=== PATIENT | male | born 1930 | race Caucasian/White ===

== ENCOUNTER → 2018-03-12 | Outpatient (CLI) | payer MEDICARE ==
[~2018-03-12] MED LIST: AMIO200T PO; AMIO200T42 PO; CARV12.543 PO; CLONIDINE PATCH; HYDR25TA6 PO; LOSA100T6 PO; LOSA25TA2 PO; OMEP-110 PO; RIVA20TA PO
== END | disposition home or self-care (01) ==
LOC: CVU 13:03
PROVIDERS: ATTEND Internal Medicine Cardiovascular Disease
DX: I48.91 Unspecified atrial fibrillation (principal); I08.0 Rheumatic disorders of both mitral and aortic valves; I10 Essential (primary) hypertension
CPT/HCPCS: 93306

== ENCOUNTER 2018-03-22 15:14 | Inpatient (IN) | payer MEDICARE, OTHER ==
[~2018-03-22] VITALS: Ht 185.4 cm; Wt 111.9 kg
[2018-03-22] MEDS ORDERED: SODIUM CHLORIDE FLUSH 10ML SYR IVF ONE (15:30)
[2018-03-22 15:38] LABS: BASOPHILS # (AUTO) 0.07 x10^3/uL (0-0.1); BASOPHILS % (AUTO) 1 % (0-1); EOSINOPHILS # (AUTO) 0.08 x10^3/uL (0-0.4); EOSINOPHILS % (AUTO) 1 % (1-7); LYMPHOCYTES # (AUTO) 1.87 x10^3/uL (1-3.4); LYMPHOCYTES % (AUTO) 23 % (22-44); MD NO; MEAN CORPUSCULAR HEMOGLOBIN 28.2 pg (27.5-34.5); MEAN CORPUSCULAR HGB CONC 32.9 g/dL (33.2-36.2); MEAN CORPUSCULAR VOLUME 85.6 fL (81-97); MEAN PLATELET VOLUME 9.4 fL (7.4-10.4); MONOCYTES # (AUTO) 1.12 x10^3/uL (0.2-0.8); MONOCYTES % (AUTO) 14 % (2-9); NEUTROPHILS # (AUTO) 5.13 x10^3/uL (1.8-6.8); NEUTROPHILS % (AUTO) 62 % (42-75); PLATELET COUNT 172 x10^3/uL (130-400); RED BLOOD COUNT 4.15 x10^6/uL (4.38-5.82); RED CELL DISTRIBUTION WIDTH 13.7 % (9.4-14.8)
[2018-03-22 15:47] LABS: ANION GAP 9 mmol/L (5-15); CALCIUM 8.9 mg/dL (8.5-10.1); CHLORIDE 105 mmol/L (98-107); CREATININE 1.68 mg/dL (0.7-1.3)
[2018-03-22] MEDS ORDERED: ONDANSETRON 2MG/ML, 2ML ONE (15:53)
[2018-03-22] MEDS ORDERED: MORPHINE SULFATE 4 MG/ML, 1ML ONE ×2 (15:54→21:00)
[2018-03-22 15:57] LABS: INTERNATIONAL NORMALIZED RATIO 1.13 (0.93-1.1); PROTHROMBIN TIME 11.6 Seconds (9.6-11.5)
[2018-03-22] MEDS ORDERED: ONDANSETRON 2MG/ML, 2ML IVPush ONE (16:00)
[2018-03-22] MEDS: MORPHINE SULFATE 4 MG/ML, 1ML IVPush PRN ×2 (16:05→17:38)
[2018-03-22] MEDS ORDERED: LIDOCAINE-MPF 2% ,5ML ONE (16:12)
[2018-03-22] MEDS ORDERED: LEVE250T28 PO ×2 (17:15→17:16)
[2018-03-22] MEDS ORDERED: NOVOSEVEN RT (FACTOR VIIA) RECOMB 1,000 MCG IVPush ONE (17:30)
[2018-03-22] MEDS ORDERED: MAGN250T8 PO (17:31)
[2018-03-22] MEDS ORDERED: TEMA30CA6 PO (17:31)
[2018-03-22] MEDS ORDERED: OMEP20TA62 PO (17:33)
[2018-03-22] MEDS ORDERED: LOSA100T2 PO (17:33)
[2018-03-22] MEDS ORDERED: FURO-93 PO (17:33)
[2018-03-22] MEDS ORDERED: ELIQUIS (17:34)
[2018-03-22] MEDS ORDERED: THYROID MED (17:34)
[2018-03-22] MEDS ORDERED: SODIUM CHLORIDE FLUSH 10ML SYR IVF PRN (18:00)
[2018-03-22] MEDS ORDERED: LEVETIRACETAM 250 MG in SODIUM CHLORIDE 0.9% 100 ML IV SCH (19:30)
[2018-03-22] MEDS: D5%-0.45NACL+KCL 20MEQ 1,000 ML IV SCH (20:11)
[2018-03-22 20:15] VITALS: BP 131/84
[2018-03-22] MEDS: METOPROLOL TARTRATE 25 MG TABLET PO SCH (20:30)
[2018-03-22] MEDS: METHIMAZOLE 5 MG TAB PO SCH (20:30)
[2018-03-22] MEDS ORDERED: LABETALOL 5MG/ML, 20ML ONE (21:19)
[2018-03-22] MEDS ORDERED: MORPHINE SULFATE 4 MG/ML, 1ML IVPush PRN (21:30)
[2018-03-22] MEDS ORDERED: LABETALOL 5MG/ML, 20ML IVPush PRN (21:30)
[2018-03-22] MEDS: LORazepam 2 MG/ML, 1ML IVPush PRN (22:21)
[2018-03-23] MEDS: METOPROLOL TARTRATE 25 MG TABLET PO SCH ×4 (02:30→20:19)
[2018-03-23] MEDS ORDERED: LABETALOL 5MG/ML, 20ML IVPush PRN (03:30)
[2018-03-23 04:00] VITALS: BP 98/53
[2018-03-23 04:28] LABS: MEAN CORPUSCULAR HEMOGLOBIN 27.7 pg (27.5-34.5); MEAN CORPUSCULAR HGB CONC 32.4 g/dL (33.2-36.2); MEAN CORPUSCULAR VOLUME 85.3 fL (81-97); MEAN PLATELET VOLUME 9.7 fL (7.4-10.4); PLATELET COUNT 159 x10^3/uL (130-400); RED BLOOD COUNT 3.93 x10^6/uL (4.38-5.82); RED CELL DISTRIBUTION WIDTH 13.7 % (9.4-14.8)
[2018-03-23] MEDS: METHIMAZOLE 5 MG TAB PO SCH ×3 (04:30→20:19)
[2018-03-23 04:40] LABS: CHLORIDE 107 mmol/L (98-107)
[2018-03-23 04:47] LABS: ALANINE AMINOTRANSFERASE 27 U/L (12-78); ALBUMIN 2.8 g/dL (3.4-5.0); ALKALINE PHOSPHATASE 128 U/L (45-117); ANION GAP 7 mmol/L (5-15); BILIRUBIN,TOTAL 0.8 mg/dL (0.2-1.0); CALCIUM 8.7 mg/dL (8.5-10.1); CREATININE 1.78 mg/dL (0.7-1.3)
[2018-03-23 04:50] LABS: BASOPHILS # (AUTO) 0.13 x10^3/uL (0-0.1); BASOPHILS % (AUTO) 1 % (0-1); EOSINOPHILS # (AUTO) 0.01 x10^3/uL (0-0.4); EOSINOPHILS % (AUTO) 0 % (1-7); LYMPHOCYTES # (AUTO) 1.48 x10^3/uL (1-3.4); LYMPHOCYTES % (AUTO) 13 % (22-44); MD SCAN; MONOCYTES # (AUTO) 1.87 x10^3/uL (0.2-0.8); MONOCYTES % (AUTO) 17 % (2-9); NEUTROPHILS # (AUTO) 7.63 x10^3/uL (1.8-6.8); NEUTROPHILS % (AUTO) 69 % (42-75)
[2018-03-23] MEDS: D5%-0.45NACL+KCL 20MEQ 1,000 ML IV SCH ×2 (05:00→17:28)
[2018-03-23] MEDS: LABETALOL 5MG/ML, 20ML IVPush PRN ×4 (07:11→23:02)
[2018-03-23] MEDS: MORPHINE SULFATE 4 MG/ML, 1ML IVPush PRN ×3 (07:12→22:22)
[2018-03-23] MEDS: LORazepam 2 MG/ML, 1ML IVPush PRN ×3 (10:09→21:00)
[2018-03-23] MEDS: LEVETIRACETAM 250 MG in SODIUM CHLORIDE 0.9% 100 ML IV SCH ×2 (12:30→21:00)
[2018-03-24] MEDS: MORPHINE SULFATE 4 MG/ML, 1ML IVPush PRN ×6 (00:21→22:54)
[2018-03-24] MEDS: LABETALOL 5MG/ML, 20ML IVPush PRN ×2 (00:40→20:16)
[2018-03-24] MEDS: METOPROLOL TARTRATE 25 MG TABLET PO SCH ×4 (02:40→19:56)
[2018-03-24] MEDS: D5%-0.45NACL+KCL 20MEQ 1,000 ML IV SCH ×2 (02:47→15:57)
[2018-03-24 04:30] VITALS: BP 123/60
[2018-03-24] MEDS: METHIMAZOLE 5 MG TAB PO SCH ×3 (04:31→19:56)
[2018-03-24] MEDS ORDERED: FENTANYL PF 100 MCG/2ML ONE (06:40)
[2018-03-24] MEDS ORDERED: FENTANYL PF 250 MCG/5ML ONE (06:40)
[2018-03-24] MEDS ORDERED: CEFAZOLIN 1,000 MG ONE (06:53)
[2018-03-24] MEDS ORDERED: PROPOFOL 10 MG/ML, 20ML ONE (06:53)
[2018-03-24] MEDS ORDERED: SUCCINYLCHOLINE 20 MG/ML, 10ML ONE (06:53)
[2018-03-24] MEDS ORDERED: PHENYLEPHRINE 10 MG/ML ONE (06:53)
[2018-03-24] MEDS ORDERED: ONDANSETRON 2MG/ML, 2ML ONE (06:53)
[2018-03-24] MEDS ORDERED: NEOSPORIN OINT, 15GM TP PRN (09:30)
[2018-03-24] MEDS: LEVETIRACETAM 250 MG in SODIUM CHLORIDE 0.9% 100 ML IV SCH ×2 (11:24→20:18)
[2018-03-24] MEDS: CEFAZOLIN PMX 2GM/50ML 50 ML IVPB SCH ×2 (15:36→23:40)
[2018-03-24] MEDS: LORazepam 2 MG/ML, 1ML IVPush PRN (15:57)
[2018-03-25] MEDS: LORazepam 2 MG/ML, 1ML IVPush PRN ×2 (01:12→20:57)
[2018-03-25] MEDS: D5%-0.45NACL+KCL 20MEQ 1,000 ML IV SCH ×3 (01:13→20:57)
[2018-03-25] MEDS: METOPROLOL TARTRATE 25 MG TABLET PO SCH ×4 (02:30→20:33)
[2018-03-25] MEDS: METHIMAZOLE 5 MG TAB PO SCH ×3 (03:05→20:33)
[2018-03-25 04:00] VITALS: BP 135/67
[2018-03-25] MEDS: LABETALOL 5MG/ML, 20ML IVPush PRN (07:48)
[2018-03-25] MEDS: LEVETIRACETAM 250 MG in SODIUM CHLORIDE 0.9% 100 ML IV SCH ×2 (11:38→20:57)
[2018-03-25] MEDS: MORPHINE SULFATE 4 MG/ML, 1ML IVPush PRN ×2 (14:55→22:07)
[2018-03-26] MEDS: METOPROLOL TARTRATE 25 MG TABLET PO SCH ×4 (03:26→20:13)
[2018-03-26] MEDS: METHIMAZOLE 5 MG TAB PO SCH ×3 (03:26→20:13)
[2018-03-26 04:00] VITALS: BP 126/81
[2018-03-26] MEDS: MORPHINE SULFATE 4 MG/ML, 1ML IVPush PRN ×3 (04:40→22:28)
[2018-03-26] MEDS: D5%-0.45NACL+KCL 20MEQ 1,000 ML IV SCH (05:43)
[2018-03-26] MEDS ORDERED: FUROSEMIDE 20 MG/2 ML IV ONE (07:30)
[2018-03-26] MEDS ORDERED: KETOROLAC 30 MG/1 ML IVPush PRN (08:00)
[2018-03-26 08:10] LABS: MEAN CORPUSCULAR HEMOGLOBIN 27.4 pg (27.5-34.5); MEAN CORPUSCULAR HGB CONC 31.9 g/dL (33.2-36.2); MEAN CORPUSCULAR VOLUME 85.8 fL (81-97); PLATELET COUNT 209 x10^3/uL (130-400); RED BLOOD COUNT 3.85 x10^6/uL (4.38-5.82)
[2018-03-26 08:19] LABS: ALBUMIN 2.5 g/dL (3.4-5.0); ANION GAP 8 mmol/L (5-15); CALCIUM 8.4 mg/dL (8.5-10.1); CHLORIDE 106 mmol/L (98-107)
[2018-03-26 08:26] LABS: BASOPHILS # (AUTO) 0.03 x10^3/uL (0-0.1); BASOPHILS % (AUTO) 0 % (0-1); EOSINOPHILS # (AUTO) 0.09 x10^3/uL (0-0.4); EOSINOPHILS % (AUTO) 1 % (1-7); LYMPHOCYTES % (AUTO) 15 % (22-44); MD SCAN; MONOCYTES # (AUTO) 1.72 x10^3/uL (0.2-0.8); MONOCYTES % (AUTO) 15 % (2-9); NEUTROPHILS # (AUTO) 8.12 x10^3/uL (1.8-6.8); NEUTROPHILS % (AUTO) 69 % (42-75)
[2018-03-26 08:30] LABS: ALANINE AMINOTRANSFERASE 18 U/L (12-78); ALKALINE PHOSPHATASE 136 U/L (45-117); BILIRUBIN,TOTAL 0.7 mg/dL (0.2-1.0); FREE T4 (FREE THYROXINE) 2.06 ng/dL (0.76-1.46); TOTAL PROTEIN 7.2 g/dL (6.4-8.2)
[2018-03-26 08:31] LABS: THYROID STIMULATING HORMONE < 0.005 mIU/L (0.358-3.740)
[2018-03-26] MEDS: LEVETIRACETAM 250 MG in SODIUM CHLORIDE 0.9% 100 ML IV SCH ×2 (10:53→21:06)
[2018-03-26] MEDS ORDERED: ENOXAPARIN 30 MG/0.3 ML SQ SCH (13:00)
[2018-03-26] MEDS: SODIUM CHLORIDE 0.9% 1,000 ML IV SCH (15:22)
[2018-03-26 16:24] LABS: FIO2 ROOM AIR %
[2018-03-26] MEDS: LABETALOL 5MG/ML, 20ML IVPush PRN ×2 (19:18→21:13)
[2018-03-26] MEDS: LORazepam 2 MG/ML, 1ML IVPush PRN (19:18)
[2018-03-26] MEDS ORDERED: D5%-0.45NACL+KCL 20MEQ 1,000 ML IV SCH (20:00)
[2018-03-27] MEDS: SODIUM CHLORIDE 0.9% 1,000 ML IV SCH ×2 (01:32→12:01)
[2018-03-27] MEDS: LABETALOL 5MG/ML, 20ML IVPush PRN ×2 (02:28→09:28)
[2018-03-27] MEDS: METOPROLOL TARTRATE 25 MG TABLET PO SCH ×4 (02:30→20:33)
[2018-03-27] MEDS: MORPHINE SULFATE 4 MG/ML, 1ML IVPush PRN (02:32)
[2018-03-27 04:00] VITALS: BP 104/70
[2018-03-27] MEDS: METHIMAZOLE 5 MG TAB PO SCH ×2 (04:29→09:53)
[2018-03-27] MEDS ORDERED: HALOPERIDOL 5 MG/ML IV PRN (09:00)
[2018-03-27] MEDS: LEVETIRACETAM 250 MG in SODIUM CHLORIDE 0.9% 100 ML IV SCH ×2 (09:53→20:37)
[2018-03-27] MEDS ORDERED: DIGOXIN 0.25 MG/ML, 2ML IVPush ONE (10:30)
[2018-03-27] MEDS ORDERED: ENOXAPARIN 40 MG/0.4 ML SQ SCH (15:30)
[2018-03-28] MEDS: SODIUM CHLORIDE 0.9% 1,000 ML IV SCH ×2 (01:26→13:02)
[2018-03-28] MEDS: METOPROLOL TARTRATE 25 MG TABLET PO SCH ×2 (02:30→08:29)
[2018-03-28 04:00] VITALS: BP 126/73
[2018-03-28 04:31] LABS: ALBUMIN 2.4 g/dL (3.4-5.0); ANION GAP 8 mmol/L (5-15); CALCIUM 8.5 mg/dL (8.5-10.1); CHLORIDE 109 mmol/L (98-107)
[2018-03-28 04:35] LABS: ALANINE AMINOTRANSFERASE 19 U/L (12-78); ALKALINE PHOSPHATASE 150 U/L (45-117); BILIRUBIN,TOTAL 0.7 mg/dL (0.2-1.0); CREATININE 1.85 mg/dL (0.7-1.3); TOTAL PROTEIN 6.6 g/dL (6.4-8.2)
[2018-03-28] MEDS: METHIMAZOLE 5 MG TAB PO SCH (08:30)
[2018-03-28] MEDS ORDERED: DIGOXIN 0.125 MG TABLET PO SCH (09:00)
[2018-03-28] MEDS: LEVETIRACETAM 250 MG in SODIUM CHLORIDE 0.9% 100 ML IV SCH (10:05)
[2018-03-28] MEDS ORDERED: DIGO125T PO (12:55)
[2018-03-28] MEDS ORDERED: HYDR-3241 PO (12:55)
[2018-03-28] MEDS ORDERED: METO25TA35 PO (12:55)
[2018-03-28] MEDS ORDERED: LABE5VIA13 IVPush (12:55)
[2018-03-28] MEDS ORDERED: ENOX40SY4 SQ (12:55)
[2018-03-28] MEDS ORDERED: HALO5VIA2 IV (12:55)
[2018-03-28] MEDS ORDERED: MORP4VIA IVPush (12:55)
[2018-03-28] MEDS ORDERED: METH5TAB6 PO (12:55)
[2018-03-28] MEDS ORDERED: LORA2VIA4 IVPush (12:55)
[2018-03-28] MEDS ORDERED: Neosporin Oint, 15GM TP (12:55)
[2018-03-28] MEDS ORDERED: normal saline IV (13:12)
[2018-03-28] MEDS ORDERED: keppra IV (13:12)
[2018-03-28] MEDS ORDERED: ENOXAPARIN 40 MG/0.4 ML SQ SCH (15:30)
== END 2018-03-28 15:26 | DRG 956 ==
LOC: ED 16:04 → EDIP 17:52 → CCU 19:40
PROVIDERS: ADMIT Internal Medicine; ATTEND Internal Medicine
PROC: 0JQ03ZZ Repair Scalp Subcutaneous Tissue and Fascia, Percutaneous Approach (ICD-10-PCS; 2018-03-22)
PROC: 0JQH3ZZ Repair Left Lower Arm Subcutaneous Tissue and Fascia, Percutaneous Approach (ICD-10-PCS; 2018-03-22)
PROC: 0QH734Z Insertion of Internal Fixation Device into Left Upper Femur, Percutaneous Approach (ICD-10-PCS; principal; 2018-03-24 07:00)
DX: S72.002A Fracture of unspecified part of neck of left femur, initial encounter for closed fracture (principal); S06.6X0A Traumatic subarachnoid hemorrhage without loss of consciousness, initial encounter; D68.69 Other thrombophilia; S01.81XA Laceration without foreign body of other part of head, initial encounter; E03.9 Hypothyroidism, unspecified; E05.90 Thyrotoxicosis, unspecified without thyrotoxic crisis or storm; F03.90 Unspecified dementia, unspecified severity, without behavioral disturbance, psychotic disturbance, mood disturbance, and anxiety; I10 Essential (primary) hypertension; I35.1 Nonrheumatic aortic (valve) insufficiency; I48.2 Chronic atrial fibrillation; S41.112A Laceration without foreign body of left upper arm, initial encounter; W10.9XXA Fall (on) (from) unspecified stairs and steps, initial encounter; Y93.01 Activity, walking, marching and hiking; Y92.89 Other specified places as the place of occurrence of the external cause; Y99.8 Other external cause status; Z79.01 Long term (current) use of anticoagulants; Z79.899 Other long term (current) drug therapy; Z86.010 Personal history of colon polyps; Z87.891 Personal history of nicotine dependence
CPT/HCPCS: 36415; 36600; 70450; 70486; 71045; 72125; 72170; 76000; 80048; 80053; 82040; 82803; 83735; 84439; 84443; 85025; 85610; 85730; 87081; 93005; 96374; 96375; C1713; J0690; J1650; J1885; J1953; J2405; J2704; J3010; J7189; C1769; J0330; J1160; J1940; J2060; J2370; J3480; J7030

== ENCOUNTER → 2018-06-27 | Outpatient (CLI) | payer MEDICARE, OTHER ==
[~2018-06-27] MED LIST changes: +DIGO125T PO; +ELIQUIS; +ENOX40SY4 SQ; +FURO-93 PO; +HALO5VIA2 IV; +HYDR-3241 PO; +LABE5VIA13 IVPush; +LEVE250T28 PO; +LORA2VIA6 IVPush; +LOSA100T2 PO; -LOSA100T6 PO; +LOSA100T7 PO; +MAGN250T8 PO; +METH5TAB6 PO; +METO25TA35 PO; +MORP4VIA IVPush; +Neosporin Oint, 15GM TP; +OMEP20TA62 PO; +TEMA30CA6 PO; +THYROID MED; +keppra IV; +normal saline IV
== END | disposition home or self-care (01) ==
LOC: RAD 11:33
PROVIDERS: ATTEND Internal Medicine
DX: I62.00 Nontraumatic subdural hemorrhage, unspecified (principal); G31.9 Degenerative disease of nervous system, unspecified; I67.82 Cerebral ischemia; R90.82 White matter disease, unspecified
CPT/HCPCS: 70450

== ENCOUNTER 2018-08-25 10:40 | Emergency (ER) | payer MEDICARE, OTHER ==
[~2018-08-25] VITALS: Ht 188 cm; Wt 99.0 kg
[~2018-08-25 10:40] MED LIST changes: +AMPI500C2 PO; +ASPI-650 PO; +FLUO20CA8 PO; +FURO80TA3 PO; +LEVE500T53 PO; +LEVO75TA PO; +LISI5TAB7 PO; +METH10TA6 PO; +PRED1TAB PO; +SPIR50TA4 PO
[2018-08-25 10:58] VITALS: BP 116/73
[2018-08-25] MEDS ORDERED: MORPHINE SULFATE 4 MG/ML, 1ML ONE (11:24)
[2018-08-25] MEDS ORDERED: MORPHINE SULFATE 4 MG/ML, 1ML IVPush PRN (11:30)
[2018-08-25] MEDS ORDERED: OXYcodone IR 5MG TABLET ONE (11:54)
[2018-08-25] MEDS ORDERED: OXYcodone IR 5MG TABLET PO ONE (12:00)
== END 2018-08-25 14:26 | disposition home or self-care (01) ==
LOC: ED 11:10
DX: S32.010A Wedge compression fracture of first lumbar vertebra, initial encounter for closed fracture (principal); S32.020A Wedge compression fracture of second lumbar vertebra, initial encounter for closed fracture; I10 Essential (primary) hypertension; I48.91 Unspecified atrial fibrillation; W01.0XXA Fall on same level from slipping, tripping and stumbling without subsequent striking against object, initial encounter; Y93.89 Activity, other specified; Y92.009 Unspecified place in unspecified non-institutional (private) residence as the place of occurrence of the external cause; Y99.8 Other external cause status
CPT/HCPCS: 72110; 93005; 99283

== ENCOUNTER 2018-08-27 04:01 | Inpatient (IN) | payer MEDICARE, OTHER ==
[~2018-08-27] VITALS: Ht 182.9 cm; Wt 103.5 kg
[2018-08-27 06:04] LABS: ALANINE AMINOTRANSFERASE 22 U/L (12-78); ALBUMIN 2.7 g/dL (3.4-5.0); ANION GAP 11 mmol/L (5-15); CALCIUM 8.2 mg/dL (8.5-10.1); CHLORIDE 104 mmol/L (98-107)
[2018-08-27 06:05] LABS: BASOPHILS # (AUTO) 0.02 x10^3/uL (0-0.1); BASOPHILS % (AUTO) 0 % (0-1); EOSINOPHILS # (AUTO) 0.01 x10^3/uL (0-0.4); EOSINOPHILS % (AUTO) 0 % (1-7); LYMPHOCYTES # (AUTO) 1.24 x10^3/uL (1-3.4); LYMPHOCYTES % (AUTO) 13 % (22-44); MD NO; MEAN CORPUSCULAR HEMOGLOBIN 29.9 pg (27.5-34.5); MEAN CORPUSCULAR HGB CONC 33.1 g/dL (33.2-36.2); MEAN CORPUSCULAR VOLUME 90.5 fL (81-97); MEAN PLATELET VOLUME 7.4 fL (7.4-10.4); MONOCYTES # (AUTO) 1.06 x10^3/uL (0.2-0.8); MONOCYTES % (AUTO) 11 % (2-9); NEUTROPHILS # (AUTO) 7.05 x10^3/uL (1.8-6.8); NEUTROPHILS % (AUTO) 75 % (42-75); PLATELET COUNT 341 x10^3/uL (130-400); RED BLOOD COUNT 3.58 x10^6/uL (4.38-5.82)
[2018-08-27 06:06] LABS: BILIRUBIN,TOTAL 0.5 mg/dL (0.2-1.0)
[2018-08-27 06:07] LABS: ALKALINE PHOSPHATASE 208 U/L (45-117); TOTAL PROTEIN 8.2 g/dL (6.4-8.2)
[2018-08-27] MEDS ORDERED: SODIUM CHLORIDE 0.9% 1,000 ML IV ONE (06:50)
[2018-08-27] MEDS ORDERED: SODIUM CHLORIDE 0.9% 1,000ML IVBOLUS ONE (07:00)
[2018-08-27] MEDS ORDERED: SODIUM CHLORIDE FLUSH 10ML SYR IVF PRN (09:00)
[2018-08-27] MEDS ORDERED: MORPHINE SULFATE 4 MG/ML, 1ML IVPush PRN (09:00)
[2018-08-27] MEDS ORDERED: ONDANSETRON 2MG/ML, 2ML IVPush PRN (09:00)
[2018-08-27] MEDS ORDERED: ONDANSETRON 2MG/ML, 2ML ONE (09:01)
[2018-08-27] MEDS ORDERED: MORPHINE SULFATE 4 MG/ML, 1ML ONE (09:01)
[2018-08-27 12:15] VITALS: BP 137/78
[2018-08-27 12:37] LABS: MICROSCOPIC INDICATED
[2018-08-27 12:52] VITALS: BP 137/87
[2018-08-27 12:56] LABS: CULTURE INDICATED? NO
[2018-08-27] MEDS ORDERED: ONDANSETRON ODT 4 MG PO PRN (13:00)
[2018-08-27] MEDS ORDERED: METOPROLOL TARTRATE 25 MG TABLET ONE (13:21)
[2018-08-27] MEDS ORDERED: LEVETIRACETAM 500 MG TABLET ONE (13:22)
[2018-08-27] MEDS: LEVETIRACETAM 500 MG TABLET PO SCH ×3 (13:31→21:00)
[2018-08-27] MEDS: D5%-0.45NACL+KCL 20MEQ 1,000 ML IV SCH (13:33)
[2018-08-27] MEDS: METOPROLOL TARTRATE 25 MG TABLET PO SCH ×3 (13:33→21:00)
[2018-08-27] MEDS ORDERED: METOPROLOL TARTRATE 25 MG TABLET PO SCH (18:00)
[2018-08-27 21:00] VITALS: BP 126/72
[2018-08-27] MEDS ORDERED: LEVETIRACETAM 500 MG TABLET PO SCH (21:00)
[2018-08-28 00:57] VITALS: BP 119/71
[2018-08-28] MEDS: morphine SULFATE 10 MG/ML, 1ML IVPush PRN ×2 (03:02→21:30)
[2018-08-28] MEDS: D5%-0.45NACL+KCL 20MEQ 1,000 ML IV SCH ×2 (03:03→17:22)
[2018-08-28] MEDS: LEVOTHYROXINE 75 MCG TABLET PO SCH (05:55)
[2018-08-28] MEDS: METOPROLOL TARTRATE 25 MG TABLET PO SCH ×2 (05:55→21:29)
[2018-08-28] MEDS: LEVETIRACETAM 500 MG TABLET PO SCH ×2 (08:25→21:29)
[2018-08-28] MEDS: FLUOXETINE HCL 20 MG CAPSULE PO SCH (08:25)
[2018-08-28 09:02] VITALS: BP 128/82
[2018-08-28 15:51] VITALS: BP 110/73
[2018-08-28 18:51] VITALS: BP 90/69
[2018-08-28 20:44] VITALS: BP 113/71
[2018-08-29 01:37] VITALS: BP 116/77
[2018-08-29] MEDS: morphine SULFATE 10 MG/ML, 1ML IVPush PRN ×4 (01:46→15:37)
[2018-08-29 05:18] LABS: ANION GAP 5 mmol/L (5-15); CALCIUM 8.4 mg/dL (8.5-10.1); CHLORIDE 108 mmol/L (98-107)
[2018-08-29 05:20] LABS: CREATININE 1.06 mg/dL (0.7-1.3)
[2018-08-29] MEDS: D5%-0.45NACL+KCL 20MEQ 1,000 ML IV SCH (05:44)
[2018-08-29 05:54] VITALS: BP 119/71
[2018-08-29] MEDS: LEVOTHYROXINE 75 MCG TABLET PO SCH (05:59)
[2018-08-29] MEDS: METOPROLOL TARTRATE 25 MG TABLET PO SCH ×2 (05:59→11:01)
[2018-08-29 06:59] VITALS: BP 125/76
[2018-08-29] MEDS: LEVETIRACETAM 500 MG TABLET PO SCH ×2 (11:01→20:52)
[2018-08-29] MEDS: FLUOXETINE HCL 20 MG CAPSULE PO SCH (11:01)
[2018-08-29 13:31] VITALS: BP 124/82
[2018-08-29 20:27] VITALS: BP 125/86
[2018-08-30] MEDS: D5%-0.45NACL+KCL 20MEQ 1,000 ML IV SCH ×2 (00:11→12:14)
[2018-08-30 01:12] VITALS: BP 129/83
[2018-08-30] MEDS: METOPROLOL TARTRATE 25 MG TABLET PO SCH ×2 (06:00→17:38)
[2018-08-30] MEDS: LEVOTHYROXINE 75 MCG TABLET PO SCH (06:00)
[2018-08-30 08:00] VITALS: BP 124/70
[2018-08-30] MEDS: FLUOXETINE HCL 20 MG CAPSULE PO SCH (08:32)
[2018-08-30] MEDS: LEVETIRACETAM 500 MG TABLET PO SCH ×2 (08:32→21:06)
[2018-08-30 14:00] VITALS: BP 138/87
[2018-08-30] MEDS: morphine SULFATE 10 MG/ML, 1ML IVPush PRN (15:56)
[2018-08-30 19:37] VITALS: BP 135/86
[2018-08-31 01:20] VITALS: BP 118/77
[2018-08-31] MEDS: D5%-0.45NACL+KCL 20MEQ 1,000 ML IV SCH ×2 (02:58→16:06)
[2018-08-31] MEDS: morphine SULFATE 10 MG/ML, 1ML IVPush PRN ×3 (04:52→21:08)
[2018-08-31 05:48] LABS: ALBUMIN 2.1 g/dL (3.4-5.0); ANION GAP 8 mmol/L (5-15); CHLORIDE 106 mmol/L (98-107)
[2018-08-31 06:01] LABS: ALANINE AMINOTRANSFERASE 16 U/L (12-78); ALKALINE PHOSPHATASE 186 U/L (45-117); BILIRUBIN,TOTAL 0.4 mg/dL (0.2-1.0); TOTAL PROTEIN 7.1 g/dL (6.4-8.2)
[2018-08-31 06:27] LABS: FREE T4 (FREE THYROXINE) 0.97 ng/dL (0.76-1.46)
[2018-08-31] MEDS: METOPROLOL TARTRATE 25 MG TABLET PO SCH ×2 (06:37→16:57)
[2018-08-31] MEDS: LEVOTHYROXINE 75 MCG TABLET PO SCH (06:37)
[2018-08-31 07:20] VITALS: BP 129/78
[2018-08-31] MEDS: FLUOXETINE HCL 20 MG CAPSULE PO SCH (07:36)
[2018-08-31] MEDS: LEVETIRACETAM 500 MG TABLET PO SCH ×2 (07:36→21:08)
[2018-08-31 10:54] LABS: INTERNATIONAL NORMALIZED RATIO 1.21 (0.93-1.1); PROTHROMBIN TIME 12.7 Seconds (9.6-11.5)
[2018-08-31 14:15] VITALS: BP 120/76
[2018-08-31 20:57] VITALS: BP 132/84
[2018-09-01 01:55] VITALS: BP 143/96
[2018-09-01] MEDS: METOPROLOL TARTRATE 25 MG TABLET PO SCH ×2 (05:37→18:06)
[2018-09-01] MEDS: LEVOTHYROXINE 100 MCG TABLET PO SCH (05:38)
[2018-09-01] MEDS: D5%-0.45NACL+KCL 20MEQ 1,000 ML IV SCH ×2 (05:39→20:36)
[2018-09-01 06:36] VITALS: BP 135/83
[2018-09-01] MEDS: FLUOXETINE HCL 20 MG CAPSULE PO SCH (09:00)
[2018-09-01] MEDS: LEVETIRACETAM 500 MG TABLET PO SCH ×2 (09:00→20:36)
[2018-09-01 12:43] VITALS: BP 119/80
[2018-09-01] MEDS ORDERED: LIDOCAINE-MPF 1%, 5ML ONE (14:02)
[2018-09-01] MEDS ORDERED: FLUMAZENIL 0.1 MG/1 ML, 5ML ONE (14:17)
[2018-09-01] MEDS ORDERED: MIDAZOLAM 1 MG/ML, 5ML ONE (14:17)
[2018-09-01] MEDS ORDERED: NALOXONE 1 MG/ML, 2ML ONE (14:17)
[2018-09-01] MEDS ORDERED: FENTANYL PF 100 MCG/2ML ONE (14:17)
[2018-09-01] MEDS: morphine SULFATE 10 MG/ML, 1ML IVPush PRN ×2 (15:16→23:38)
[2018-09-01 19:30] VITALS: BP 129/82
[2018-09-02 01:37] VITALS: BP 123/85
[2018-09-02] MEDS: LEVOTHYROXINE 100 MCG TABLET PO SCH (06:04)
[2018-09-02] MEDS: METOPROLOL TARTRATE 25 MG TABLET PO SCH ×2 (06:05→18:01)
[2018-09-02 07:48] VITALS: BP 122/84
[2018-09-02] MEDS: LEVETIRACETAM 500 MG TABLET PO SCH ×2 (09:00→22:27)
[2018-09-02] MEDS: FLUOXETINE HCL 20 MG CAPSULE PO SCH (09:00)
[2018-09-02] MEDS ORDERED: LIDOCAINE-MPF 1%, 5ML ONE ×2 (11:40→12:40)
[2018-09-02] MEDS ORDERED: GLYCOPYRROLATE 0.2MG/1ML, 5ML ONE (12:05)
[2018-09-02] MEDS ORDERED: PROPOFOL 10 MG/ML, 20ML ONE (12:05)
[2018-09-02] MEDS ORDERED: ROCURONIUM 10 MG/ML,10ML ONE (12:05)
[2018-09-02] MEDS ORDERED: NEOSTIGMINE 1 MG/ML, 10ML ONE (12:05)
[2018-09-02] MEDS ORDERED: ONDANSETRON 2MG/ML, 2ML ONE (12:05)
[2018-09-02] MEDS ORDERED: DEXAMETHASONE 4 MG/ML, 1ML ONE (12:05)
[2018-09-02] MEDS ORDERED: CEFAZOLIN PMX 1GM/50ML 50 ML ONE (12:32)
[2018-09-02] MEDS ORDERED: FENTANYL PF 100 MCG/2ML ONE (12:48)
[2018-09-02] MEDS ORDERED: FENTANYL PF 100 MCG/2ML IV PRN (14:00)
[2018-09-02] MEDS ORDERED: hydrALAzine 20 MG/ML, 1ML IV PRN (14:00)
[2018-09-02] MEDS ORDERED: LABETALOL 5MG/ML, 20ML IV PRN (14:00)
[2018-09-02] MEDS: D5%-0.45NACL+KCL 20MEQ 1,000 ML IV SCH (14:44)
[2018-09-02 14:59] VITALS: BP 124/80
[2018-09-02 19:13] VITALS: BP 126/86
[2018-09-02 23:47] VITALS: BP 119/75
[2018-09-03] MEDS: D5%-0.45NACL+KCL 20MEQ 1,000 ML IV SCH ×2 (02:00→21:22)
[2018-09-03 03:40] VITALS: BP 136/85
[2018-09-03] MEDS: LEVOTHYROXINE 100 MCG TABLET PO SCH (06:41)
[2018-09-03] MEDS: METOPROLOL TARTRATE 25 MG TABLET PO SCH ×2 (06:41→17:14)
[2018-09-03 06:44] VITALS: BP 133/82
[2018-09-03 08:20] VITALS: BP 125/88
[2018-09-03] MEDS: FLUOXETINE HCL 20 MG CAPSULE PO SCH (09:35)
[2018-09-03] MEDS: LEVETIRACETAM 500 MG TABLET PO SCH ×2 (09:35→21:19)
[2018-09-03] MEDS ORDERED: OMEPRAZOLE 20 MG CAPSULE.DR PO ONE (10:00)
[2018-09-03 12:03] VITALS: BP 128/88
[2018-09-03 20:00] VITALS: BP 113/73
[2018-09-03] MEDS: OMEPRAZOLE 20 MG CAPSULE.DR PO SCH (21:20)
[2018-09-04 02:45] VITALS: BP 145/110
[2018-09-04] MEDS: LEVOTHYROXINE 100 MCG TABLET PO SCH (05:47)
[2018-09-04] MEDS: METOPROLOL TARTRATE 25 MG TABLET PO SCH ×2 (05:47→17:46)
[2018-09-04 07:11] VITALS: BP 150/87
[2018-09-04] MEDS: OMEPRAZOLE 20 MG CAPSULE.DR PO SCH ×2 (08:45→19:51)
[2018-09-04] MEDS: FLUOXETINE HCL 20 MG CAPSULE PO SCH (08:45)
[2018-09-04] MEDS: LEVETIRACETAM 500 MG TABLET PO SCH ×2 (08:45→19:51)
[2018-09-04 11:28] LABS: CLOSTRIDIUM DIFFICILE ANTIGEN NEGATIVE; CLOSTRIDIUM DIFFICILE TOXIN NEGATIVE (Negative)
[2018-09-04 13:43] VITALS: BP 113/79
[2018-09-04 19:08] VITALS: BP 128/82
[2018-09-04] MEDS: D5%-0.45NACL+KCL 20MEQ 1,000 ML IV SCH (22:44)
[2018-09-05 00:20] VITALS: BP 125/73
[2018-09-05] MEDS: METOPROLOL TARTRATE 25 MG TABLET PO SCH (05:46)
[2018-09-05] MEDS: LEVOTHYROXINE 100 MCG TABLET PO SCH (05:46)
[2018-09-05 07:22] VITALS: BP 130/88
[2018-09-05] MEDS: FLUOXETINE HCL 20 MG CAPSULE PO SCH (08:06)
[2018-09-05] MEDS: OMEPRAZOLE 20 MG CAPSULE.DR PO SCH (08:06)
[2018-09-05] MEDS: LEVETIRACETAM 500 MG TABLET PO SCH (08:06)
[2018-09-05] MEDS ORDERED: OMEP-110 PO (08:36)
[2018-09-05 11:53] VITALS: BP 133/81
[2018-09-05 13:00] VITALS: BP 133/81
== END 2018-09-05 14:16 | disposition home health service (06) | DRG 515 ==
LOC: ED 04:26 → 5SO 09:54 → 4NOR 08-28 20:25
PROVIDERS: ADMIT Internal Medicine; ATTEND Internal Medicine
PROC: 0QU03JZ Supplement Lumbar Vertebra with Synthetic Substitute, Percutaneous Approach (ICD-10-PCS; 2018-09-02)
PROC: 0QS03ZZ Reposition Lumbar Vertebra, Percutaneous Approach (ICD-10-PCS; principal; 2018-09-02 12:00)
DX: S32.010A Wedge compression fracture of first lumbar vertebra, initial encounter for closed fracture (principal); N17.0 Acute kidney failure with tubular necrosis; E87.1 Hypo-osmolality and hyponatremia; E44.0 Moderate protein-calorie malnutrition; K56.7 Ileus, unspecified; S32.020A Wedge compression fracture of second lumbar vertebra, initial encounter for closed fracture; W18.39XA Other fall on same level, initial encounter; Y93.89 Activity, other specified; Y92.89 Other specified places as the place of occurrence of the external cause; Y99.8 Other external cause status; E03.9 Hypothyroidism, unspecified; Z68.30 Body mass index [BMI] 30.0-30.9, adult; E86.0 Dehydration; F03.90 Unspecified dementia, unspecified severity, without behavioral disturbance, psychotic disturbance, mood disturbance, and anxiety; F43.21 Adjustment disorder with depressed mood; I10 Essential (primary) hypertension; I48.2 Chronic atrial fibrillation; Z79.01 Long term (current) use of anticoagulants; Z96.642 Presence of left artificial hip joint; Z66 Do not resuscitate
CPT/HCPCS: 22514; 36415; 70450; 71045; 72131; 72148; 74018; 80048; 80053; 81001; 83690; 84439; 84443; 85025; 85610; 85730; 87324; 93005; 99285; G0378; J0690; J1100; J2250; J2405; J2704; J2710; J3010; J3490; Q0162; J2270; J2310; J3480; J7030